=== PATIENT | female | born 1990 | race Caucasian/White ===

== ENCOUNTER 2019-10-31 18:40 | Emergency (ER) | payer BC ==
[2019-10-31 18:51] VITALS: RESP 18; TEMP 98.4
[2019-10-31] MEDS ORDERED: hydrALAZINE HCL 20 MG/ML 1 ML VIAL IVP STA (19:27)
[2019-10-31 19:40] LABS: Basophils % (A) 1 %; Eosinophils # (A) 0.1 k/uL (0-0.7); Eosinophils % (A) 2 %; HCT 38.7 % (34.0-46.0); HGB 12.7 gm/dL (11.4-16.0); Lymphocytes # (A) 1.8 k/uL (1.0-4.8); Lymphocytes % (A) 28 %; MCH 28.5 pg (25.0-35.0); MCHC 32.8 g/dL (31.0-37.0); MCV 86.9 fL (80.0-100.0); Monocytes # (A) 0.3 k/uL (0-1.0); Monocytes % (A) 4 %; Neutrophils # (A) 4.3 k/uL (1.3-7.7); Neutrophils % (A) 64 %; Platelet Count 274 k/uL (150-450); RBC 4.45 m/uL (3.80-5.40); RDW 12.2 % (11.5-15.5); WBC 6.7 k/uL (3.8-10.6)
[2019-10-31 19:49] LABS: HCG,Qualitative Serum Not Detected
[2019-10-31 19:52] LABS: ALT 44 U/L (4-34); AST 38 U/L (14-36); African American GFR (CKD) >90 (>60 ml/min/1.73 sqM); Albumin 4.1 g/dL (3.5-5.0); Alkaline Phosphatase 77 U/L (38-126); Anion Gap 7 mmol/L; Blood Urea Nitrogen 10 mg/dL (7-17); Calcium 9.6 mg/dL (8.4-10.2); Carbon Dioxide 28 mmol/L (22-30); Chloride 103 mmol/L (98-107); Glucose 109 mg/dL (74-99); Non-African American GFR(CKD) >90 (>60 ml/min/1.73 sqM); Potassium 3.9 mmol/L (3.5-5.1); Sodium 138 mmol/L (137-145); Total Bilirubin 0.2 mg/dL (0.2-1.3)
[2019-10-31 20:00] LABS: INR 0.9 (<1.2); Partial Thromboplastin Time 22.5 sec (22.0-30.0); Prothrombin Time 9.5 sec (9.0-12.0)
--- NOTE | 2019-10-31 20:02 | XR ---
EXAMINATION TYPE: XR chest 2V DATE OF EXAM: 10/31/2019 COMPARISON: NONE HISTORY: Chest pain TECHNIQUE: 2 views. FINDINGS: Heart and mediastinum are normal. Lungs are clear of consolidation. There is small linear density lef t lung base. There are chest leads. There are no hilar masses. Bony thorax is intact. IMPRESSION: Subsegmental minimal atelectasis left lung base. Normal heart.
[2019-10-31] MEDS ORDERED: KETOROLAC 30 MG/ML 1 ML VIAL IVP STA (20:10)
[2019-10-31] MEDS ORDERED: diphenhydrAMINE 50 MG/ML 1 ML VIAL IVP STA (20:10)
[2019-10-31] MEDS ORDERED: METOCLOPRAMIDE 5 MG/ML 2 ML VIAL IVP STA (20:10)
[2019-10-31] MEDS ORDERED: DEXAMETHASONE SOD PHOSPHATE 10 MG/ML 1 ML VIAL IV STA (20:10)
--- NOTE | 2019-10-31 20:22 | ED ---
General Adult HPI - General Chief complaint: Dizziness Stated complaint: High BP Time Seen by Provider: 10/31/19 18:50 Source: patient Mode of arrival: ambulatory Limitations: no limitations - History of Present Illness Initial comments: The patient is a 29-year-old female past history of hypertension and diabetes mellitus who presents emergency room with reported presyncope and hypertension. She states that she used to be on lisinopril 10 mg once daily for her high blood pressure. She made some diet changes and lost weight. States that she's been off of the lisinopril for approximately 1 year. 3 days ago she began having some lightheaded sensation. She took her blood pressure with her home cuff and noted that her blood pressure was high. She therefore came into the proper evaluation. She admits to mild chest pressure. States that she has been eating terribly over the past couple of months because of increased stress. She attempted to take a lisinopril at home however noted that her medication was . She still took it hoping that it would work. She denies cough or hemoptysis. Denies flank pain. No vision changes. No unilateral numbness or weakness. There are no alleviating, precipitating or modifying factors - Related Data Home Medications Medication Instructions Recorded Confirmed Atorvastatin [Lipitor] 20 mg PO HS 10/31/19 10/31/19 FLUoxetine HCL 10 mg PO DAILY 10/31/19 10/31/19 Lisinopril [Zestril] 10 mg PO DAILY PRN 10/31/19 10/31/19 Vitamin D3 2000iu Gummy 2,000 unit PO DAILY 10/31/19 10/31/19 metFORMIN HCL ER [Glucophage Xr] 500 mg PO AC-BID@0700,1800 10/31/19 10/31/19 Previous Rx's Medication Instructions Recorded Lisinopril [Zestril] 10 mg PO DAILY #21 tab 10/31/19 Allergies Allergy/AdvReac Type Severity Reaction Status Date / Time No Known Allergies Allergy Verified 10/31/19 20:15 Review of Systems ROS Statement: Those systems with pertinent positive or pertinent negative responses have been documented in the HPI. ROS Other: All systems not noted in ROS Statement are negative. Past Medical History Past Medical History: Diabetes Mellitus, Hypertension History of Any Multi-Drug Resistant Organisms: None Reported Past Psychological History: Anxiety, Depression Smoking Status: Never smoker Past Alcohol Use History: Rare Past Drug Use History: None Reported General Exam Limitations: no limitations General appearance: alert, in no apparent distress Head exam: Present: atraumatic, normocephalic, normal inspection Eye exam: Present: normal appearance, PERRL, EOMI. Absent: scleral icterus, conjunctival injection, periorbital swelling ENT exam: Present: normal exam, mucous membranes moist Neck exam: Present: normal inspection. Absent: tenderness, meningismus, lymphadenopathy Respiratory exam: Present: normal lung sounds bilaterally. Absent: respiratory distress, wheezes, rales, rhonchi, stridor Cardiovascular Exam: Present: regular rate, normal rhythm, normal heart sounds. Absent: systolic murmur, diastolic murmur, rubs, gallop, clicks GI/Abdominal exam: Present: soft, normal bowel sounds. Absent: distended, tenderness, guarding, rebound, rigid Extremities exam: Present: normal inspection, full ROM, normal capillary refill. Absent: tenderness, pedal edema, joint swelling, calf tenderness Back exam: Present: normal inspection Neurological exam: Present: alert, oriented X3, CN II-XII intact Psychiatric exam: Present: normal affect, normal mood Skin exam: Present: warm, dry, intact, normal color. Absent: rash Course Vital Signs 10/31/19 10/31/19 10/31/19 18:46 19:39 20:00 Temperature 98.4 F Pulse Rate 79 81 76 Respiratory 18 18 18 Rate Blood Pressure 168/110 142/98 140/93 O2 Sat by Pulse 96 95 Oximetry 10/31/19 21:00 Temperature Pulse Rate 78 Respiratory 18 Rate Blood Pressure 141/95 O2 Sat by Pulse 97 Oximetry EKG Findings - EKG Comments: EKG Findings:: EKG demonstrates normal sinus rhythm with a ventricular rate of 72. [place] interval 182. QRS 98. QTC of 429. No acute ST segment elevations or depressions concerning for schemata changes. Inverted T-wave in lead 3 Medical Decision Making - Medical Decision Making Upon arrival the patient was placed into room 2. Ferrous and physical exam was performed. Laboratory studies were conducted and the patient went for chest x- ray. I did discuss performing a CT of her brain however the patient refused at this time. Laboratory studies are unremarkable. Chest x-ray demonstrates no acute intrathoracic finding. Patient was ordered something for her high blood pressure however it does improve to 140 over 90s on its own. The patient is requesting something for headache. She is given a dose of Reglan, Toradol, Benadryl and Decadron. Patient does report that her headache is completely improved with these medications. She is stable for discharge at this time. I did prescribe her lisinopril 10 mg to be taken daily. She needs to follow-up with her primary care doctor in 2-4 days for reevaluation. Return to the emergency room for any new or worsening symptoms. The patient was discharged home in stable condition - Lab Data Result diagrams: 10/31/19 19:22 10/31/19 19:22 Lab Results 10/31/19 10/31/19 10/31/19 Range/Units 19: 19: 19: WBC 6.7 (3.8-10.6) k/uL RBC 4.45 (3.80-5.40) m/uL Hgb 12.7 (11.4-16.0) gm/dL Hct 38.7 (34.0-46.0) % MCV 86.9 (80.0-100.0) fL MCH 28.5 (25.0-35.0) pg MCHC 32.8 (31.0-37.0) g/dL RDW 12.2 (11.5-15.5) % Plt Count 274 (150-450) k/uL Neutrophils % 64 % Lymphocytes % 28 % Monocytes % 4 % Eosinophils % 2 % Basophils % 1 % Neutrophils # 4.3 (1.3-7.7) k/uL Lymphocytes # 1.8 (1.0-4.8) k/uL Monocytes # 0.3 (0-1.0) k/uL Eosinophils # 0.1 (0-0.7) k/uL Basophils # 0.0 (0-0.2) k/uL PT 9.5 (9.0-12.0) sec INR 0.9 (<1.2) APTT 22.5 (22.0-30.0) sec Sodium 138 (137-145) mmol/L Potassium 3.9 (3.5-5.1) mmol/L Chloride 103 (98-107) mmol/L Carbon Dioxide 28 (22-30) mmol/L Anion Gap 7 mmol/L BUN 10 (7-17) mg/dL Creatinine 0.72 (0.52-1.04) mg/dL Est GFR (CKD-EPI)AfAm >90 (>60 ml/min/1.73 sqM) Est GFR (CKD-EPI)NonAf >90 (>60 ml/min/1.73 sqM) Glucose 109 H (74-99) mg/dL Calcium 9.6 (8.4-10.2) mg/dL Total Bilirubin 0.2 (0.2-1.3) mg/dL AST 38 H (14-36) U/L ALT 44 H (4-34) U/L Alkaline Phosphatase 77 (38-126) U/L Troponin I (0.000-0.034) ng/mL Total Protein 7.0 (6.3-8.2) g/dL Albumin 4.1 (3.5-5.0) g/dL HCG, Qual Not Detected 10/31/19 Range/Units 19:22 WBC (3.8-10.6) k/uL RBC (3.80-5.40) m/uL Hgb (11.4-16.0) gm/dL Hct (34.0-46.0) % MCV (80.0-100.0) fL MCH (25.0-35.0) pg MCHC (31.0-37.0) g/dL RDW (11.5-15.5) % Plt Count (150-450) k/uL Neutrophils % % Lymphocytes % % Monocytes % % Eosinophils % % Basophils % % Neutrophils # (1.3-7.7) k/uL Lymphocytes # (1.0-4.8) k/uL Monocytes # (0-1.0) k/uL Eosinophils # (0-0.7) k/uL Basophils # (0-0.2) k/uL PT (9.0-12.0) sec INR (<1.2) APTT (22.0-30.0) sec Sodium (137-145) mmol/L Potassium (3.5-5.1) mmol/L Chloride (98-107) mmol/L Carbon Dioxide (22-30) mmol/L Anion Gap mmol/L BUN (7-17) mg/dL Creatinine (0.52-1.04) mg/dL Est GFR (CKD-EPI)AfAm (>60 ml/min/1.73 sqM) Est GFR (CKD-EPI)NonAf (>60 ml/min/1.73 sqM) Glucose (74-99) mg/dL Calcium (8.4-10.2) mg/dL Total Bilirubin (0.2-1.3) mg/dL AST (14-36) U/L ALT (4-34) U/L Alkaline Phosphatase (38-126) U/L Troponin I <0.012 (0.000-0.034) ng/mL Total Protein (6.3-8.2) g/dL Albumin (3.5-5.0) g/dL HCG, Qual Disposition Clinical Impression: Headache, Hypertension Disposition: HOME SELF-CARE Condition: Stable Instructions (If sedation given, give patient instructions): Hypertension (ED) Additional Instructions: Please follow up with your primary care doctor regarding your high blood pressure. Return to the emergency room for any new or worsening symptoms Prescriptions: Lisinopril [Zestril] 10 mg PO DAILY #21 tab Is patient prescribed a controlled substance at d/c from ED?: No Referrals: None,Stated [Primary Care Provider] - 1-2 days Time of Disposition: 20:40
[2019-10-31 22:10] VITALS: BP 141/95; PULSE 78
== END 2019-10-31 21:03 | disposition home or self-care (01) ==
LOC: EC 18:40
DX: I10 Essential (primary) hypertension (principal); R55 Syncope and collapse; R07.89 Other chest pain; F43.9 Reaction to severe stress, unspecified; E11.9 Type 2 diabetes mellitus without complications; F32.9 Major depressive disorder, single episode, unspecified; F41.9 Anxiety disorder, unspecified; Z79.84 Long term (current) use of oral hypoglycemic drugs; Z79.899 Other long term (current) drug therapy; Z53.8 Procedure and treatment not carried out for other reasons; Z53.20 Procedure and treatment not carried out because of patient's decision for unspecified reasons
CPT/HCPCS: 99284; 96374; 96375 ×3; 36415; 93005; 80053; 84484; 85025; 85610; 85730; 84703; 71046; J1200; J1100; J2765; J1885

== ENCOUNTER → 2020-06-13 | Outpatient (CLI) | payer BC | END | disposition home or self-care (01) | LOC: LABWHC1 11:10 | PROVIDERS: ATTEND Family Medicine | DX: R05 Cough (principal); Z20.828 Contact with and (suspected) exposure to other viral communicable diseases | CPT/HCPCS: U0003; C9803 ==

== ENCOUNTER 2020-12-18 11:16 | Emergency (ER) | payer BC ==
[2020-12-18 11:32] VITALS: RESP 18
[2020-12-18] MEDS ORDERED: MAG HYDROX/AL HYDROX/SIMETH 30 ML, HYOSCYAMINE ELIXIR 10 ML PO STA ×2 (12:01)
--- NOTE | 2020-12-18 12:16 | ED ---
Chest Pain HPI - General Chief Complaint: Chest Pain Stated Complaint: Chest pain, Dizziness, abd pain Time Seen by Provider: 12/18/20 11:37 Source: patient, RN notes reviewed Mode of arrival: ambulatory Limitations: no limitations - History of Present Illness Initial Comments: 30-year-old female presents emergency Department chief complaint of chest dis comfort, shortness breath. Patient states she went to her PCP to rule out covid as she states she's had some body aches, diarrhea, stomach. She's complaining of heartburn which is not a usual for her. Patient does admit that she has some mild underlying renal disease, diabetes, hypertension. No prior cardiac or lung disease. She does admit that she had [place] Covid vaccine. Patient denies any Pain leg swelling no other complaints at this time. - Related Data Home Medications Medication Instructions Recorded Confirmed Vitamin D3 2000iu Gummy 2,000 unit PO DAILY 10/31/19 12/18/20 Atorvastatin [Lipitor] 40 mg PO HS 12/18/20 12/18/20 metFORMIN HCL 1,000 mg PO BID 12/18/20 12/18/20 sitaGLIPtin [Januvia] 100 mg PO DAILY 12/18/20 12/18/20 Previous Rx's Medication Instructions Recorded lisinopriL [Zestril] 10 mg PO DAILY #21 tab 10/31/19 Pantoprazole [Protonix] 40 mg PO DAILY #30 tablet. 12/18/20 Allergies Allergy/AdvReac Type Severity Reaction Status Date / Time No Known Allergies Allergy Verified 12/18/20 12:04 Review of Systems ROS Statement: Those systems with pertinent positive or pertinent negative responses have been documented in the HPI. ROS Other: All systems not noted in ROS Statement are negative. EKG Findings - EKG Comments: EKG Findings:: EKG performed at 11:44 normal sinus rhythm rate of 84 WA 180 QRS 100 QT/QTC 380/449 - EKG Results: EKG: interpreted by [facility] Past Medical History Past Medical History: Diabetes Mellitus, Hypertension, Renal Disease History of Any Multi-Drug Resistant Organisms: None Reported Past Surgical History: No Surgical Hx Reported Past Anesthesia/Blood Transfusion Reactions: No Reported Reaction Past Psychological History: Anxiety, Depression Smoking Status: Never smoker Past Alcohol Use History: Occasional Past Drug Use History: None Reported General Exam Limitations: no limitations General appearance: alert, in no apparent distress Head exam: Present: atraumatic, normocephalic, normal inspection Eye exam: Present: normal appearance, PERRL, EOMI. Absent: scleral icterus, conjunctival injection, periorbital swelling ENT exam: Present: normal exam, normal oropharynx, mucous membranes moist Neck exam: Present: normal inspection. Absent: tenderness, meningismus, lymphadenopathy Respiratory exam: Present: normal lung sounds bilaterally. Absent: respiratory distress, wheezes, rales, rhonchi, stridor Cardiovascular Exam: Present: regular rate, normal rhythm, normal heart sounds. Absent: systolic murmur, diastolic murmur, rubs, gallop, clicks GI/Abdominal exam: Present: soft, tenderness (Mild epigastric), normal bowel sounds. Absent: distended, guarding, rebound, rigid Back exam: Absent: CVA tenderness (R), CVA tenderness (L) Neurological exam: Present: alert Skin exam: Present: warm, dry, intact, normal color. Absent: rash Course Vital Signs 12/18/20 12/18/20 12/18/20 11:28 11:53 12:24 Temperature 97.9 F Pulse Rate 92 82 92 Respiratory 18 18 18 Rate Blood Pressure 144/96 134/94 129/99 O2 Sat by Pulse 100 99 97 Oximetry 12/18/20 13:39 Temperature Pulse Rate 81 Respiratory 18 Rate Blood Pressure 122/99 O2 Sat by Pulse 95 Oximetry Chest Pain MDM - MDM 30-year-old female presented for requesting covid testing. Patient's had some viral URI symptoms workup does not reveal any acute abnormality at this time no evidence of PE his d-dimer is negative, x-rays unremarkable, troponin is negative. Disposition Clinical Impression: Viral illness, GERD (gastroesophageal reflux disease) Disposition: HOME SELF-CARE Condition: Stable Instructions (If sedation given, give patient instructions): Gastroesophageal Reflux Disease (ED) Additional Instructions: Please return to the Emergency Department if symptoms worsen or any other concerns. Prescriptions: Pantoprazole [Protonix] 40 mg PO DAILY #30 tablet.dr Is patient prescribed a controlled substance at d/c from ED?: No Referrals: Meagan Strange MD [Primary Care Provider] - 1-2 days Time of Disposition: 13:47
[2020-12-18 12:28] LABS: Basophils # (A) 0.1 k/uL (0-0.2); Basophils % (A) 1 %; Eosinophils # (A) 0.1 k/uL (0-0.7); Eosinophils % (A) 2 %; HCT 38.8 % (34.0-46.0); HGB 13.3 gm/dL (11.4-16.0); Lymphocytes # (A) 1.5 k/uL (1.0-4.8); Lymphocytes % (A) 24 %; MCHC 34.4 g/dL (31.0-37.0); MCV 87.3 fL (80.0-100.0); Mean Platelet Volume 7.7; Monocytes # (A) 0.3 k/uL (0-1.0); Monocytes % (A) 4 %; Neutrophils % (A) 67 %; Platelet Count 299 k/uL (150-450); RBC 4.45 m/uL (3.80-5.40); RDW 12.7 % (11.5-15.5)
[2020-12-18 12:46] LABS: ALT 45 U/L (4-34); AST 40 U/L (14-36); African American GFR (CKD) >90 (>60 ml/min/1.73 sqM); Albumin 4.3 g/dL (3.5-5.0); Alkaline Phosphatase 58 U/L (38-126); Anion Gap 10 mmol/L; Blood Urea Nitrogen 5 mg/dL (7-17); Calcium 10.3 mg/dL (8.4-10.2); Carbon Dioxide 27 mmol/L (22-30); Chloride 103 mmol/L (98-107); Glucose 129 mg/dL (74-99); Lipase 292 U/L (23-300); Magnesium 1.4 mg/dL (1.6-2.3); Non-African American GFR(CKD) >90 (>60 ml/min/1.73 sqM); Potassium 4.2 mmol/L (3.5-5.1); Sodium 140 mmol/L (137-145); Total Bilirubin 0.4 mg/dL (0.2-1.3); Total Protein 7.4 g/dL (6.3-8.2)
--- NOTE | 2020-12-18 12:58 | XR ---
EXAMINATION TYPE: XR chest 2V DATE OF EXAM: 12/18/2020 COMPARISON: Chest x-ray October 31, 2019 HISTORY: Chest pain after heartburn for one day. TECHNIQUE: Frontal and lateral views of the chest are obtained. FINDINGS: There is no suspicious new focal air space opacity, pleural effusion, or pneumothorax seen . The cardiac silhouette size remains within normal limits. The osseous structures are intact. IMPRESSION: No acute process. No significant change from prior.
[2020-12-18 13:14] LABS: D-Dimer <0.17 mg/L FEU (<0.60); INR 0.9 (<1.2); Partial Thromboplastin Time 21.7 sec (22.0-30.0); Prothrombin Time 9.9 sec (9.0-12.0)
[2020-12-18 14:46] VITALS: BP 105/78; PULSE 75; TEMP 98.2
== END 2020-12-18 14:46 | disposition home or self-care (01) ==
LOC: EC 11:16
DX: K21.9 Gastro-esophageal reflux disease without esophagitis (principal); B34.9 Viral infection, unspecified; E11.9 Type 2 diabetes mellitus without complications; I10 Essential (primary) hypertension; F32.9 Major depressive disorder, single episode, unspecified; Z79.84 Long term (current) use of oral hypoglycemic drugs
CPT/HCPCS: 36415; 71046; 80053; 83690; 83735; 83880; 84484; 85025; 85379; 85610; 85730; 87635; 93005; 99285

== ENCOUNTER 2021-03-06 13:43 | Emergency (ER) | payer BC, OTHER ==
[2021-03-06 14:02] VITALS: TEMP 98.2
[2021-03-06] MEDS ORDERED: PROCHLORPERAZINE INJ 10 MG/2 ML VIAL IVP STA (14:53)
[2021-03-06] MEDS ORDERED: KETOROLAC 15 MG/ML 1 ML VIAL IVP STA (14:53)
[2021-03-06] MEDS ORDERED: diphenhydrAMINE 50 MG/ML 1 ML VIAL IVP STA (14:53)
[2021-03-06] MEDS ORDERED: SODIUM CHLORIDE 0.9% 1,000 ML IV STA (14:53)
[2021-03-06 15:31] VITALS: RESP 20
[2021-03-06 15:37] LABS: Basophils # (A) 0.1 k/uL (0-0.2); Basophils % (A) 1 %; Eosinophils # (A) 0.1 k/uL (0-0.7); Eosinophils % (A) 2 %; HCT 35.8 % (34.0-46.0); HGB 12.3 gm/dL (11.4-16.0); Lymphocytes # (A) 1.7 k/uL (1.0-4.8); Lymphocytes % (A) 34 %; MCH 30.5 pg (25.0-35.0); MCHC 34.3 g/dL (31.0-37.0); MCV 88.9 fL (80.0-100.0); Mean Platelet Volume 7.7; Monocytes # (A) 0.2 k/uL (0-1.0); Monocytes % (A) 4 %; Neutrophils # (A) 2.9 k/uL (1.3-7.7); Neutrophils % (A) 58 %; Platelet Count 274 k/uL (150-450); RBC 4.02 m/uL (3.80-5.40); RDW 12.9 % (11.5-15.5); WBC 4.9 k/uL (3.8-10.6)
[2021-03-06 15:46] LABS: ALT 25 U/L (4-34); AST 24 U/L (14-36); African American GFR (CKD) >90 (>60 ml/min/1.73 sqM); Albumin 3.7 g/dL (3.5-5.0); Alkaline Phosphatase 56 U/L (38-126); Anion Gap 6 mmol/L; Blood Urea Nitrogen 11 mg/dL (7-17); Calcium 9.4 mg/dL (8.4-10.2); Carbon Dioxide 27 mmol/L (22-30); Chloride 107 mmol/L (98-107); Glucose 109 mg/dL (74-99); Lipase 219 U/L (23-300); Magnesium 1.7 mg/dL (1.6-2.3); Non-African American GFR(CKD) >90 (>60 ml/min/1.73 sqM); Potassium 4.1 mmol/L (3.5-5.1); Sodium 140 mmol/L (137-145); Total Bilirubin 0.2 mg/dL (0.2-1.3); Total Protein 6.4 g/dL (6.3-8.2)
[2021-03-06 15:56] LABS: Appearance,Urine Clear (Clear); Bilirubin,Urine Negative (Negative); Blood,Urine Negative (Negative); Color,Urine Colorless; Glucose,Urine (UA) Negative (Negative); Ketones,Urine Negative (Negative); Leukocyte Esterase,Urine Negative (Negative); Nitrite,Urine Negative (Negative); Protein,Urine Negative (Negative); Specific Gravity,Urine 1.005 (1.001-1.035); Urobilinogen,Urine <2.0 mg/dL (<2.0)
--- NOTE | 2021-03-06 16:23 | XR ---
EXAMINATION TYPE: XR chest 2V DATE OF EXAM: 03/06/2021 COMPARISON: 12/18/2020 INDICATION: Weakness TECHNIQUE: Frontal and lateral views of the chest are obtained. FINDINGS: The heart size is normal. The pulmonary vasculature is normal. The lungs are clear. IMPRESSION: 1. No acute pulmonary process.
--- NOTE | 2021-03-06 17:49 | ED ---
General Adult HPI - General Chief complaint: Headache Stated complaint: High Blood Pressure Time Seen by Provider: 03/06/21 14:00 Source: patient, RN notes reviewed, old records reviewed Mode of arrival: ambulatory Limitations: no limitations - History of Present Illness Initial comments: Patient is a 30-year-old female with past medical history remarkable for hypertension who presents emergency Department complaining of hypertension at home with a headache. Patient states that overnight, she awoke with a tight belt-like sensation around her head with a 9 out of 10 headache. She discussed it is an achy throbbing sensation. She attempted to take ibuprofen for to home. She is not frugally compliant with her normal blood pressure medication, li sinopril and she took one of those as well. She did check her blood pressure at the time and she states that the systolic blood pressure was 200, however was a wrist blood pressure cuff and she was holding her wrist at her side. She states that her headache did improve throughout the morning, however she was still having a headache today prior to arrival and wanted to come to the emergency department for evaluation. She denies any chest pain, shortness of breath, blurry vision. Denies any weakness, numbness. Denies any fevers, chills, cough. Patient describes her headache currently is approximately 3-4 out of 10, and a belt-like distribution similar to earlier. She denies any family medical history of brain aneurysms. She is not on blood thinners. Blood pressure is improved at this time. Patient presents for evaluation of her blood pressure and headache. - Related Data Home Medications Medication Instructions Recorded Confirmed Atorvastatin [Lipitor] 40 mg PO DAILY 12/18/20 03/06/21 metFORMIN HCL [Glucophage] 1,000 mg PO BID 12/18/20 03/06/21 sitaGLIPtin [Januvia] 100 mg PO DAILY 12/18/20 03/06/21 Previous Rx's Medication Instructions Recorded lisinopriL [Zestril] 10 mg PO DAILY #21 tab 10/31/19 Allergies Allergy/AdvReac Type Severity Reaction Status Date / Time No Known Allergies Allergy Verified 03/06/21 17:07 Review of Systems ROS Statement: Those systems with pertinent positive or pertinent negative responses have been documented in the HPI. ROS Other: All systems not noted in ROS Statement are negative. Past Medical History Past Medical History: Diabetes Mellitus, Hypertension, Renal Disease History of Any Multi-Drug Resistant Organisms: None Reported Past Surgical History: No Surgical Hx Reported Past Anesthesia/Blood Transfusion Reactions: No Reported Reaction Past Psychological History: Anxiety, Depression Smoking Status: Never smoker Past Alcohol Use History: Occasional Past Drug Use History: None Reported General Exam - General Exam Comments Initial Comments: Review of Systems: CONST: Denies fever EYES: Denies blurry vision ENT: Denies nasal congestion C/V: Denies Chest pain RESP: Denies shortness of breath GI: Denies abdominal pain : Denies dysuria SKIN: Denies rash. MSK: Denies joint pain. NEURO: Endorses headache Limitations: no limitations Course Vital Signs 03/06/21 03/06/21 03/06/21 13:57 14:18 14:30 Temperature 98.2 F Pulse Rate 80 70 66 Respiratory 18 20 20 Rate Blood Pressure 174/122 137/101 130/94 O2 Sat by Pulse 99 95 97 Oximetry 03/06/21 03/06/21 03/06/21 15:30 16:00 17:00 Temperature Pulse Rate 73 79 84 Respiratory 20 20 20 Rate Blood Pressure 132/93 112/70 128/93 O2 Sat by Pulse 97 94 L 97 Oximetry 03/06/21 18:06 Temperature Pulse Rate 76 Respiratory 20 Rate Blood Pressure 126/87 O2 Sat by Pulse 99 Oximetry Medical Decision Making - Medical Decision Making Based on the patient's presentation and physical exam, she was likely experiencing symptomatically hypertension at home. It is resolving at this time. Blood pressure is mildly elevated. We we'll treat the patient's headache with IV fluids, IV Toradol, Tylenol, Benadryl, Compazine and obtain a cardiac workup. She was in agreement this plan. She'll be connected to continuous cardiac monitoring. Patient's EKG showed no signs of acute ischemia. Chest x-ray shows no acute cardiopulmonary process. Laboratory studies are remarkable for a negative tr oponin. Urinalysis is unremarkable. COVID-19 is negative. Remainder of her labs are unremarkable. On reevaluation, hypertension for the patient is resolved. She is normotensive at this time. Her headache is completely resolved. She is requesting to be discharged home. I believe she is stable for discharge home as well. She is instructed to follow up with her PCP follow-up on her blood pressure medications. She was in agreement this plan. I instructed the patient to follow up with their PCP in the next 3 days. I explained that the patient should return to the emergency department if they experience any worsening symptoms. Strict return precautions were discussed with the patient. The patient expressed understanding of these instructions. I answered all questions that the patient had. The patient was discharged home in good condition with their prescriptions and follow up information. - Lab Data Result diagrams: 03/06/21 15:08 03/06/21 15:08 Lab Results 03/06/21 03/06/21 03/06/21 Range/Units 15:08 15:08 15:08 WBC 4.9 (3.8-10.6) k/uL RBC 4.02 (3.80-5.40) m/uL Hgb 12.3 (11.4-16.0) gm/dL Hct 35.8 (34.0-46.0) % MCV 88.9 (80.0-100.0) fL MCH 30.5 (25.0-35.0) pg MCHC 34.3 (31.0-37.0) g/dL RDW 12.9 (11.5-15.5) % Plt Count 274 (150-450) k/uL MPV 7.7 Neutrophils % 58 % Lymphocytes % 34 % Monocytes % 4 % Eosinophils % 2 % Basophils % 1 % Neutrophils # 2.9 (1.3-7.7) k/uL Lymphocytes # 1.7 (1.0-4.8) k/uL Monocytes # 0.2 (0-1.0) k/uL Eosinophils # 0.1 (0-0.7) k/uL Basophils # 0.1 (0-0.2) k/uL Sodium (137-145) mmol/L Potassium (3.5-5.1) mmol/L Chloride (98-107) mmol/L Carbon Dioxide (22-30) mmol/L Anion Gap mmol/L BUN (7-17) mg/dL Creatinine (0.52-1.04) mg/dL Est GFR (CKD-EPI)AfAm (>60 ml/min/1.73 sqM) Est GFR (CKD-EPI)NonAf (>60 ml/min/1.73 sqM) Glucose (74-99) mg/dL Calcium (8.4-10.2) mg/dL Magnesium (1.6-2.3) mg/dL Total Bilirubin (0.2-1.3) mg/dL AST (14-36) U/L ALT (4-34) U/L Alkaline Phosphatase (38-126) U/L Troponin I (0.000-0.034) ng/mL Total Protein (6.3-8.2) g/dL Albumin (3.5-5.0) g/dL Lipase (23-300) U/L Urine Color Colorless Urine Appearance Clear (Clear) Urine pH 5.0 (5.0-8.0) Ur Specific [place] 1.005 (1.001-1.035) Urine Protein Negative (Negative) Urine Glucose (UA) Negative (Negative) Urine Ketones Negative (Negative) Urine Blood Negative (Negative) Urine Nitrite Negative (Negative) Urine Bilirubin Negative (Negative) Urine Urobilinogen <2.0 (<2.0) mg/dL Ur Leukocyte Esterase Negative (Negative) Urine HCG, Qual Not Detected (Not Detectd) Coronavirus (PCR) (Not Detectd) 03/06/21 03/06/21 03/06/21 Range/Units 15:08 15:08 15:08 WBC (3.8-10.6) k/uL RBC (3.80-5.40) m/uL Hgb (11.4-16.0) gm/dL Hct (34.0-46.0) % MCV (80.0-100.0) fL MCH (25.0-35.0) pg MCHC (31.0-37.0) g/dL RDW (11.5-15.5) % Plt Count (150-450) k/uL MPV Neutrophils % % Lymphocytes % % Monocytes % % Eosinophils % % Basophils % % Neutrophils # (1.3-7.7) k/uL Lymphocytes # (1.0-4.8) k/uL Monocytes # (0-1.0) k/uL Eosinophils # (0-0.7) k/uL Basophils # (0-0.2) k/uL Sodium 140 (137-145) mmol/L Potassium 4.1 (3.5-5.1) mmol/L Chloride 107 (98-107) mmol/L Carbon Dioxide 27 (22-30) mmol/L Anion Gap 6 mmol/L BUN 11 (7-17) mg/dL Creatinine 0.83 (0.52-1.04) mg/dL Est GFR (CKD-EPI)AfAm >90 (>60 ml/min/1.73 sqM) Est GFR (CKD-EPI)NonAf >90 (>60 ml/min/1.73 sqM) Glucose 109 H (74-99) mg/dL Calcium 9.4 (8.4-10.2) mg/dL Magnesium 1.7 (1.6-2.3) mg/dL Total Bilirubin 0.2 (0.2-1.3) mg/dL AST 24 (14-36) U/L ALT 25 (4-34) U/L Alkaline Phosphatase 56 (38-126) U/L Troponin I <0.012 (0.000-0.034) ng/mL Total Protein 6.4 (6.3-8.2) g/dL Albumin 3.7 (3.5-5.0) g/dL Lipase 219 (23-300) U/L Urine Color Urine Appearance (Clear) Urine pH (5.0-8.0) Ur Specific [place] (1.001-1.035) Urine Protein (Negative) Urine Glucose (UA) (Negative) Urine Ketones (Negative) Urine Blood (Negative) Urine Nitrite (Negative) Urine Bilirubin (Negative) Urine Urobilinogen (<2.0) mg/dL Ur Leukocyte Esterase (Negative) Urine HCG, Qual (Not Detectd) Coronavirus (PCR) Not Detected (Not Detectd) - EKG Data -: EKG Interpreted by Me EKG Comments: 12-lead Electrocardiogram Interpretation Note EKG was reviewed and interpreted by myself. 12-lead ECG performed at 1416 is interpreted by me as revealing normal sinus rhythm at a rate of 82 beats per minute. [place] is normal. MD interval is 178 ms, QRS duration is 94 ms, QTc is 460 ms.. There were no ST or T wave abnormalities to suggest myocardial ischemia or injury. R wave progression across the precordium was satisfactory. By my interpretation this EKG is non-diagnostic for acute ischemia. Disposition Clinical Impression: Headache, Hypertension Disposition: HOME SELF-CARE Condition: Good Instructions (If sedation given, give patient instructions): Acute Headache ( ED) Is patient prescribed a controlled substance at d/c from ED?: No Referrals: Meagan Strange MD [Primary Care Provider] - 1-2 days
[2021-03-06 18:08] VITALS: BP 126/87; PULSE 76
== END 2021-03-06 18:20 | disposition home or self-care (01) ==
LOC: EC 13:43
DX: I10 Essential (primary) hypertension (principal); E11.9 Type 2 diabetes mellitus without complications; F32.9 Major depressive disorder, single episode, unspecified; F41.9 Anxiety disorder, unspecified; Z20.822 Contact with and (suspected) exposure to COVID-19; Z79.84 Long term (current) use of oral hypoglycemic drugs
CPT/HCPCS: 36415; 93005; 80053; 83690; 83735; 84484; 85025; 81003; 81025; 87635; 71046; 99284; 96374; 96375 ×2; 96361; J1200; J0780; J1885

== ENCOUNTER 2022-12-15 13:45 | Emergency (ER) | payer OTHER ==
[2022-12-15] MEDS ORDERED: IBUPROFEN 800 MG TAB PO STA (14:41)
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
[2022-12-15 16:10] VITALS: BP 130/91; PULSE 89; RESP 16; TEMP 98.1
== END 2022-12-15 16:10 | disposition home or self-care (01) ==
LOC: EC 13:45
DX: S46.212A Strain of muscle, fascia and tendon of other parts of biceps, left arm, initial encounter (principal); E11.9 Type 2 diabetes mellitus without complications; I10 Essential (primary) hypertension; Z79.84 Long term (current) use of oral hypoglycemic drugs; F41.9 Anxiety disorder, unspecified; F32.A Depression, unspecified; Z79.899 Other long term (current) drug therapy; V89.2XXA Person injured in unspecified motor-vehicle accident, traffic, initial encounter; Y92.411 Interstate highway as the place of occurrence of the external cause
CPT/HCPCS: 71045; 99283

== ENCOUNTER → 2023-11-09 | Outpatient (CLI) | payer BC | END | disposition home or self-care (01) | LOC: LABWHC1 09:07 | PROVIDERS: ATTEND Internal Medicine Gastroenterology | DX: I10 Essential (primary) hypertension (principal) | CPT/HCPCS: 36415; 82088; 82533; 83835; 84244 ==